=== PATIENT | male | born 1960 | race Caucasian/White ===

== ENCOUNTER 2021-10-29 14:28 | Outpatient (RCR) | payer OTHER, SELFPAY | END 2021-11-26 23:59 | disposition home or self-care (01) | LOC: MPT 14:28 | PROVIDERS: Absent Provider Family Medicine; Family Provider Family Medicine; PCP Family Medicine; Referring Provider Family Medicine; Visit Provider Family Medicine | DX: M54.2 Cervicalgia (principal) | CPT/HCPCS: 97110; 97140; 97162; G0283 ==

== ENCOUNTER 2021-11-27 06:00 | Outpatient (RCR) | payer OTHER, SELFPAY | END 2021-12-26 23:59 | disposition home or self-care (01) | LOC: MPT 06:00 | PROVIDERS: PCP Family Medicine; Referring Provider Family Medicine; Visit Provider Family Medicine | DX: M54.2 Cervicalgia (principal) | CPT/HCPCS: 97110; 97140; G0283 ==

== ENCOUNTER 2022-04-17 08:57 | Outpatient (CLI) | payer OTHER, SELFPAY ==
--- NOTE | 2022-04-17 | CT_ITS ---
WS: [id number] CT ABDOMEN PELVIS TECHNIQUE: Noncontrast CT of the abdomen and contrast-enhanced CT of the abdomen and pelvis with aníbal nal and sagittal reformatted images. CLINICAL INFORMATION: RENAL STONES COMPARISON: None. DLP: 2867.[address] scans at [facility] use at least one of these dose optimization techniques: automated e xposure control; mA and/or kV adjustment per patient size (includes targeted exams where dose is matc hed to clinical indication); or iterative reconstruction. FINDINGS: No obstructing renal or ureteral calculi. Normal bilateral renal parenchymal enhancement. Cortical sc arring LEFT kidney. No hydronephrosis in either kidney. Normal renal excretion on delayed images. Nor mal bladder filling. Small RIGHT dorsal bladder diverticulum measuring 8 mm best seen on coronal tomasz yed imaging Lung bases are well aerated. Mild diffuse fatty infiltration liver. Hepatic cyst measuring 1.7 CM. No rmal portal vein and splenic vein. Normal spleen. Splenic granulomas. Normal pancreatic parenchymal e nhancement. Normal GE junction. Normal caliber abdominal aorta. Celiac and SMA are patent. Renal miriam tiny are patent. Peripheral mural thrombus distal abdominal aorta with approximately 50% narrowing. A neurysmal distal abdominal aorta measuring 2.4 x 3.0 cm AP by transverse. Sigmoid diverticulosis. No evidence of acute diverticulitis. Tiny fat-containing umbilical hernia. Ve ntral abdominal wall hernia repair. Mild prostate enlargement with calcification measuring 4.1 CM. Th ickening of the seminal vesicles bilaterally. CT/CT abdomen pelvis wo/w [id number] IMPRESSION: 1. No obstructing renal or ureteral calculi. 2. Normal excretion on the delayed imaging. 3. Cortical scarring LEFT kidney. 4. Small distal abdominal aortic aneurysm with peripheral mural thrombus measu ring 2.4 x 3.0 cm AP by transverse. 5. Incidental 1.7 cm hepatic cyst. 6. Sigmoid diverticulosis. 7. Prominent prostate measuring 4.1 CM. Recommend correlation PSA. 8. Small RIGHT dorsal bladder diverticulum measuring 8 mm.
[2022-04-17] MEDS: iohexol 350 mg/mL 100 mL Btl IV (09:26)
== END 2022-04-17 08:58 | disposition home or self-care (01) ==
LOC: RAD 09:00
PROVIDERS: PCP Family Medicine; Visit Provider Emergency Medicine Emergency Medical Services
DX: N20.0 Calculus of kidney (principal); I71.40 Abdominal aortic aneurysm, without rupture, unspecified; K76.89 Other specified diseases of liver; K57.30 Diverticulosis of large intestine without perforation or abscess without bleeding; N40.0 Benign prostatic hyperplasia without lower urinary tract symptoms
CPT/HCPCS: 74178

== ENCOUNTER → 2022-07-03 12:56 | Outpatient (BNVA) | payer OTHER, SELFPAY | PROVIDERS: PCP Family Medicine; Visit Provider Internal Medicine | DX: E21.3 Hyperparathyroidism, unspecified (principal); Z87.442 Personal history of urinary calculi | CPT/HCPCS: 99204 ==

== ENCOUNTER 2022-08-19 08:12 | Outpatient (CLI) | payer OTHER, SELFPAY ==
--- NOTE | 2022-08-19 08:53 | NM_ITS ---
WS: [id number] EXAMINATION: NM parathyroid [id number] ORDER DATE: 08/19/2022 8:53 AM COMPARISON: None HISTORY: HYPERPARATHYROIDISM TECHNIQUE: Parathyroid scintigraphy with 19.4 mCi of technetium 99m administered. AP and oblique views obtained with and without chin and suprasternal notch markers. Initial and 2 hour delayed imagi ng acquired. FINDINGS: Normal salivary uptake bilaterally. Initial bilateral thyroid uptake. LEFT lower pole thyroid nodule which washes out on the delayed imaging. Bilateral thyroid washout. No significant retained radiotrac er activity to indicate parathyroid adenoma. NM/NM parathyroid [id number] IMPRESSION: 1. No evidence of parathyroid adenoma. 2. Thyroid nodule LEFT lower pole could be further evaluated with ultrasound.
--- NOTE | 2022-08-19 09:25 | XR_ITS ---
WS: [id number] Exam: XR KUB [id number] Date/Time of Exam: 08/19/2022 9:30 AM Reason For Exam: Kidney Stone No bowel obstruction or free air. Small calcification superimpose left kidney and may represent renal calculi. No sign of organ enlargement. Signs of previous hernia repair. Bony structures are intact. XR/XR KUB [id number] IMPRESSION: 1. Small calcification superimpose the left kidney and could represent renal ca lculi. 2. No acute finding.
[2022-08-19 13:09] LABS: PSA Screen - Urology 0.94 ng/mL (0-4)
[2022-08-19 13:10] LABS: Calcium 11.6 mg/dL (8.5-10.5)
== END 2022-08-19 08:13 | disposition home or self-care (01) ==
PROVIDERS: Urology; PCP Family Medicine; Visit Provider Internal Medicine
DX: Z87.442 Personal history of urinary calculi (principal); Z12.5 Encounter for screening for malignant neoplasm of prostate; E21.3 Hyperparathyroidism, unspecified; N20.0 Calculus of kidney; E04.1 Nontoxic single thyroid nodule; N26.1 Atrophy of kidney (terminal)
CPT/HCPCS: 74018; 78070; 82310; 83970; 99203; A9500; G0103

== ENCOUNTER 2022-08-28 12:47 | Outpatient (CLI) | payer OTHER, SELFPAY | END 2022-08-28 12:48 | disposition home or self-care (01) | LOC: LAB 12:53 | PROVIDERS: PCP Family Medicine; Visit Provider Internal Medicine | DX: E83.52 Hypercalcemia (principal); E21.3 Hyperparathyroidism, unspecified; Z87.442 Personal history of urinary calculi; E04.1 Nontoxic single thyroid nodule; E55.9 Vitamin D deficiency, unspecified | CPT/HCPCS: 36415; 82310; 99214 ==

== ENCOUNTER 2022-09-24 13:49 | Outpatient (CLI) | payer OTHER, SELFPAY ==
--- NOTE | 2022-09-24 14:15 | US_ITS ---
WS: [id number] THYROID ULTRASOUND HISTORY: Thyroid Nodule COMPARISON: Parathyroid nuclear medicine exam. 08/19/2022. Right lobe: 1.2 cm x 1.1 cm x 4.3 cm (w x ap x l). Volume: 3.0 cm3. Normal size gland. There is a very tiny superficial colloid cyst mid gland measuring 4 mm. No solid n odules. Normal vascularity. Left lobe: 1.0 cm x 1.2 cm x 3.5 cm (w x ap x l). Volume: 2.2 cm3. Normal size and echotexture. No significant or dominant nodules are present. No LEFT thyroid nodules correspond to the parathyroid imaging. Isthmus: 0.2 cm. US/US thyroid [id number] IMPRESSION: Normal thyroid ultrasound.
== END 2022-09-24 13:50 | disposition home or self-care (01) ==
LOC: RAD 13:54
PROVIDERS: PCP Family Medicine; Visit Provider Internal Medicine
DX: E04.1 Nontoxic single thyroid nodule (principal); E21.3 Hyperparathyroidism, unspecified; E55.9 Vitamin D deficiency, unspecified; Z87.442 Personal history of urinary calculi
CPT/HCPCS: 76536

== ENCOUNTER → 2022-12-29 12:18 | Outpatient (BNVA) | payer OTHER, SELFPAY | PROVIDERS: PCP Family Medicine; Visit Provider Internal Medicine | DX: E04.1 Nontoxic single thyroid nodule (principal); E21.3 Hyperparathyroidism, unspecified; E55.9 Vitamin D deficiency, unspecified; Z87.442 Personal history of urinary calculi; Z79.899 Other long term (current) drug therapy | CPT/HCPCS: 36415; 80048; 82306; 82310; 83970; 99213; 99214 ==

== ENCOUNTER → 2023-03-27 08:02 | Outpatient (BNVA) | payer OTHER, SELFPAY | PROVIDERS: PCP Family Medicine; Visit Provider Internal Medicine | DX: E55.9 Vitamin D deficiency, unspecified (principal); E21.3 Hyperparathyroidism, unspecified; Z87.442 Personal history of urinary calculi; E04.1 Nontoxic single thyroid nodule | CPT/HCPCS: 36415; 80053; 82310; 83970; 99214 ==

== ENCOUNTER → 2023-08-04 07:40 | Outpatient (BNVA) | payer OTHER, SELFPAY | PROVIDERS: PCP Family Medicine; Visit Provider Internal Medicine | DX: E21.3 Hyperparathyroidism, unspecified (principal); Z87.442 Personal history of urinary calculi; E04.1 Nontoxic single thyroid nodule; E55.9 Vitamin D deficiency, unspecified | CPT/HCPCS: 99213; 99214 ==

== ENCOUNTER 2023-09-03 07:27 | Outpatient (CLI) | payer OTHER, SELFPAY ==
[2023-09-03 08:37] LABS: Calcium 9.2 mg/dL (8.5-10.5)
[2023-09-03 08:45] LABS: Parathyroid Hormone 48.5 pg/mL (15-65)
[2023-09-03 08:54] LABS: 25 Hydroxy Vitamin D 29 ng/mL (30-100)
== END 2023-09-03 07:28 | disposition home or self-care (01) ==
LOC: LAB 07:28
PROVIDERS: PCP Family Medicine; Visit Provider Internal Medicine
DX: E21.3 Hyperparathyroidism, unspecified (principal); E55.9 Vitamin D deficiency, unspecified; E04.1 Nontoxic single thyroid nodule
CPT/HCPCS: 36415; 82306; 82310; 83970

== ENCOUNTER → 2024-02-02 10:54 | Outpatient (BNVA) | payer OTHER, SELFPAY | PROVIDERS: PCP Family Medicine; Visit Provider Internal Medicine | DX: E21.3 Hyperparathyroidism, unspecified (principal); E55.9 Vitamin D deficiency, unspecified; R03.0 Elevated blood-pressure reading, without diagnosis of hypertension; I10 Essential (primary) hypertension; Z87.442 Personal history of urinary calculi | CPT/HCPCS: 36415; 82306; 82310; 83970; 99214 ==

== ENCOUNTER 2024-03-01 07:00 | Outpatient (CLI) | payer OTHER, SELFPAY ==
--- NOTE | 2024-03-01 07:19 | USCV_ITS ---
Lorenzo Carter Age: 63 Gender: M : 1960 Exam Date: 03/01/2024 07:27 Ordering Phys: Ayesha Arias MD Technologist: [facility] Exam Location: [facility] [place] Indication: screening HISTORY: Diameter (cm) AP x Transverse x Length Velocity (cm/s) Waveform Prox Aorta: 2.20 x 2.20 x 63.00 Triphasic Mid Aorta: 1.90 x 1.80 x 66.20 Triphasic Distal Aorta: 2.50 x 3.00 x 65.50 Triphasic Right Iliac Prox: 1.20 x 1.70 x 33.50 Biphasic Left Iliac Prox: 1.30 x 1.50 x 65.00 Triphasic Stent Prox Landing x x Aneurysmal Sac Max x x Lt Lat Sac Dim Rt Lat Sac Dim Stent Dist Landing x x Right Iliac Stent x x Left Iliac Stent x x Right Renal Art Left Renal Art FINDINGS: CONCLUSIONS Slightly aneurysmal distal abdominal aorta measuring 2.5 x 3.0cm AP x trans Mild atheromatous disease Slightly ectatic proximal iliac arteries Jeffrey Jones MD (Electronically Signed) Final Date: 01 March 2024 09:09 S
== END 2024-03-01 07:06 | disposition home or self-care (01) ==
PROVIDERS: PCP Family Medicine; Visit Provider Family Medicine
DX: I71.40 Abdominal aortic aneurysm, without rupture, unspecified (principal)
CPT/HCPCS: 76706

== ENCOUNTER → 2024-04-12 11:35 | Outpatient (BNVA) | payer OTHER, SELFPAY | PROVIDERS: PCP Family Medicine; Visit Provider Internal Medicine Cardiovascular Disease | DX: R06.02 Shortness of breath (principal); I25.10 Atherosclerotic heart disease of native coronary artery without angina pectoris; I10 Essential (primary) hypertension; E78.5 Hyperlipidemia, unspecified; I71.40 Abdominal aortic aneurysm, without rupture, unspecified; R60.0 Localized edema; F17.200 Nicotine dependence, unspecified, uncomplicated; I44.0 Atrioventricular block, first degree | CPT/HCPCS: 36415; 80048; 83880; 93005; 99204 ==

== ENCOUNTER 2024-05-10 12:34 | Outpatient (CLI) | payer OTHER, SELFPAY ==
--- NOTE | 2024-05-10 13:30 | USCV_ITS ---
Lorenzo Carter Age: 63 Gender: M : 1960 Exam Date: 05/10/2024 13:08 Ordering Phys: Gisele Medina MD ([email or web address]) Technologist: Exam Location: [facility] – [place] Indication: cp sob BP: 125 / 70 HR: 64 Rhythm: Sinus Technical Quality: Adequate MEASUREMENTS (Male / Female) Normal Values 2D ECHO LV Diastolic Diameter PLAX 4.5 cm 4.2 - 5.9 / 3.9 - 5.3 cm IVS Diastolic Thickness 1.5 cm 0.6 - 1.0 / 0.6 - 0.9 cm IVS Systolic Thickness 2.0 cm LVPW Diastolic Thickness 1.5 cm 0.6 - 1.0 / 0.6 - 0.9 cm LVPW Systolic Thickness 1.8 cm LVOT Diameter 2.0 cm LV Ejection Fraction 2D Teich 74.8 % LV Ejection Fraction MOD 4C 61.1 % LV Ejection Fraction MOD 2C 74.5 % LV Ejection Fraction 2C AL 75.8 % LA Diameter 3.8 cm RA Systolic Volume 4C AL 36.0 ml RA Systolic Volume 4C MOD 32.7 ml LA Sys Volume AL 41.0 cm cubed LA Sys Volume Index AL 20.4 cm cubed/m squared Aorta at Sinotubular Diameter 3.3 cm IVC Diameter 1.9 cm M-MODE LA Ao Ratio MM 1.1 AV Cusp Separation MM 2.3 cm DOPPLER AV Peak Velocity 151.0 cm/s LVOT Peak Velocity 130.0 cm/s AV Area Cont Eq vti 3.6 cm squared AV Area Cont Eq pk 2.8 cm squared MV Area PHT 2.4 cm squared Mitral E to A Ratio 0.9 TV Peak Velocity 158.0 cm/s TR Peak Velocity 186.0 cm/s TR Peak Gradient 13.8 mmHg Right Atrial Pressure 3.0 mmHg Pulmonary Artery Systolic Pressu 16.8 mmHg PV Peak Velocity 130.0 cm/s FINDINGS Left Ventricle Normal left ventricular size and systolic function, EF 70%.. Moderate left ventricular hypertrophy. No regional wall motion abnormalities. Grade I/IV diastolic dysfunction (abnormal relaxation filling pattern), normal to mildly elevated filling pressures. Right Ventricle The right ventricle is normal in size and function. Right Atrium The right atrium is normal in size. Left Atrium The left atrium is normal in size. Mitral Valve Mild mitral valve regurgitation. Aortic Valve No gross abnormalities noted Tricuspid Valve Trace tricuspid valve regurgitation. Pulmonic Valve No gross abnormalities noted Pericardium Normal pericardium without effusion. Aorta Normal ascending aorta dimension. IVC Normal inferior vena cava. CONCLUSIONS Normal left ventricular size and systolic function, EF 70%.. Moderate left ventricular hypertrophy. No regional wall motion abnormalities. Grade I/IV diastolic dysfunction (abnormal relaxation filling pattern), normal to mildly elevated filling pressures. Mild mitral valve regurgitation. Trace tricuspid valve regurgitation. Estimated pulmonary artery peak systolic pressure within normal limits There is no pericardial effusion. There are no intracardiac masses. No similar previous studies are available for comparison Dr Gisele Medina MD FACC (Electronically Signed) Final Date: 20 May 2024 00:44 S
== END 2024-05-10 12:35 | disposition home or self-care (01) ==
LOC: RAD 12:35
PROVIDERS: PCP Family Medicine; Visit Provider Internal Medicine Cardiovascular Disease
DX: I50.30 Unspecified diastolic (congestive) heart failure (principal); R06.09 Other forms of dyspnea
CPT/HCPCS: 93306

== ENCOUNTER → 2024-07-27 10:18 | Outpatient (BNVA) | payer OTHER, SELFPAY | PROVIDERS: PCP Family Medicine; Visit Provider Nurse Practitioner Family | DX: I25.10 Atherosclerotic heart disease of native coronary artery without angina pectoris (principal); E78.5 Hyperlipidemia, unspecified; I71.40 Abdominal aortic aneurysm, without rupture, unspecified; I10 Essential (primary) hypertension; R60.0 Localized edema; F17.200 Nicotine dependence, unspecified, uncomplicated | CPT/HCPCS: 99214 ==

== ENCOUNTER → 2025-02-02 09:51 | Outpatient (BNVA) | payer OTHER, SELFPAY | PROVIDERS: PCP Family Medicine; Visit Provider Internal Medicine Cardiovascular Disease | DX: I71.03 Dissection of thoracoabdominal aorta (principal); Z98.890 Other specified postprocedural states; I25.10 Atherosclerotic heart disease of native coronary artery without angina pectoris; I10 Essential (primary) hypertension; E78.5 Hyperlipidemia, unspecified; Z79.82 Long term (current) use of aspirin; Z95.5 Presence of coronary angioplasty implant and graft; F17.200 Nicotine dependence, unspecified, uncomplicated | CPT/HCPCS: 99214 ==

== ENCOUNTER → 2025-03-03 09:55 | Outpatient (BNVA) | payer OTHER, SELFPAY | PROVIDERS: PCP Family Medicine; Visit Provider Student in an Organized Health Care Education/Training Program | DX: Z12.11 Encounter for screening for malignant neoplasm of colon (principal); R03.0 Elevated blood-pressure reading, without diagnosis of hypertension | CPT/HCPCS: 99203 ==